=== PATIENT | female | born 1985 | race Caucasian/White ===

== ENCOUNTER 2017-02-21 08:26 | Emergency (ER) | payer MEDICAID ==
[~2017-02-21] VITALS: Ht 167.6 cm; Wt 84.5 kg
[~2017-02-21 08:26] MED LIST: BACTDS PO; CIPR500T4 PO; ONDA4TAB35 PO
[2017-02-21 08:29] VITALS: Ht 167.6 cm; Wt 84.5 kg
--- NOTE | 2017-02-21 09:41 | RADRPT ---
PROCEDURE: Obstetrical ultrasound CLINICAL INDICATION: Pelvic pain TECHNIQUE: Multiple sonographic images of the pelvis were obtained. The images were reviewed on a PACS workstation. COMPARISON: None FINDINGS: The cervix is closed with a length of 2.9 cm. There is a single viable intrauterine gestation. Cardiac activity is present with 159 beats per minute. There is a vertex presentation. The placenta is anterior. There is no evidence for an abruption or placenta previa. There is a normal amount of amniotic fluid with a maximum vertical pocket of 3.9 cm. Measurements were made in order to determine age. The results are as follows (cm): BPD =3.12 HC =11.88 AC =10.38 FL =1.97 Estimated gestational age by ultrasound of approximately 16 weeks, 0 days. The estimated date of delivery by ultrasound is 08/08/2017. Estimated gestational age by LMP of approximately 15 weeks, 3 days. The estimated date of delivery by LMP is 08/12/2017. EFW = 144 grams (83rd percentile) The right ovary measures 2.1 x 2.8 x 2.2 cm. The left ovary measures 2.8 x 1.6 x 2.0 cm. There is normal vascular flow in bilateral ovaries. No significant ovarian lesions are identified. Bilatera l adnexa are unremarkable. IMPRESSION: Single viable intrauterine gestation of approximately 16 weeks, 0 days . The estimated date of delivery is 08/08/2017 . Dating by ultrasound is within 4 days of dating by LMP. Estimated weight is in the 83rd percentile. Bilateral ovaries and adnexa are unremarkable. There is normal vascular flow in bilateral ovaries. RPTAT: EE Physician Supa Date Time Electronically viewed and signed by Physician Supa on 02/21/2017 09:41 /
[2017-02-21 09:44] LABS: ADD SCAN DIFF NO
[2017-02-21 09:49] LABS: BASOPHILS % 0.3 % (0.0-2.0); EOSINOPHILS # 0.1 10^3/ul (0.0-0.5); EOSINOPHILS % 0.7 % (0.0-7.0); HEMATOCRIT 37.8 % (37.0-47.0); LYMPHOCYTES # 1.4 10^3/ul (0.8-2.9); LYMPHOCYTES % 19.1 % (15.0-51.0); MEAN CORPUSCULAR HEMOGLOBIN 30.7 pg (29.0-33.0); MEAN CORPUSCULAR HGB CONC 34.4 g/dl (32.0-37.0); MEAN CORPUSCULAR VOLUME 89.2 fl (82.0-101.0); MEAN PLATELET VOLUME 10.9 fl (7.4-10.4); MONOCYTE # 0.4 10^3/ul (0.3-0.9); MONOCYTES % 5.9 % (0.0-11.0); NEUTROPHIL # 5.4 10^3/ul (1.6-7.5); NEUTROPHILS % 73.6 % (39.0-77.0); PLATELET COUNT 229 10^3/UL (140-415); RED BLOOD COUNT 4.24 10^6/ul (4.20-5.40); RED CELL DISTRIBUTION WIDTH 12.7 % (11.5-14.5); WHITE BLOOD COUNT 7.3 10^3/ul (4.8-10.8)
[2017-02-21 10:03] LABS: ADD UMIC NO; URINE BILIRUBIN (Dip) NEGATIVE (NEGATIVE); URINE BLOOD (Dip) NEGATIVE (NEGATIVE); URINE COLOR LT. YELLOW (YELLOW); URINE GLUCOSE (Dip) NEGATIVE (NEGATIVE); URINE KETONES (Dip) NEGATIVE (NEGATIVE); URINE LEUKOCYTE ESTERASE (Dip) NEGATIVE (NEGATIVE); URINE NITRITE (Dip) NEGATIVE (NEGATIVE); URINE TOTAL PROTEIN (Dip) NEGATIVE (NEGATIVE); URINE UROBILINOGEN (Dip) 0.2 E.U./dL (0.1-1.0)
[2017-02-21 10:04] LABS: POTASSIUM 3.7 mmol/L (3.5-5.1)
[2017-02-21 10:07] LABS: CREATININE 0.45 mg/dl (0.44-1.00)
--- NOTE | 2017-02-21 10:25 | ERD ---
ER Documentation Chief Complaint Date/Time DATE: 02/21/17 TIME: 10:24 Chief Complaint pelvic pain , painful urination x 2 weeks , 15 weeks preg HPI 32-year-old female who is with history of 3 miscarriages approximately 16 weeks comes in with lower pelvic pain, painful urination and right- sided flank pain. Patient reports that she was recently treated for a urinary tract infection by her doctor on 2 different occasions. A couple weeks ago she was given Macrobid which she took and then she just completed amoxicillin last week. She reports suprapubic pain that is sharp, also right-sided flank pain for the past 1 day. She denies any fever, chills, nausea, vomiting hematuria. She denies vaginal bleeding. ROS All systems reviewed and are negative except as per history of present illness. Medications Home Meds Active Scripts Ondansetron Hcl* (Zofran* ODT) 4 mg -ODT Tab.disper, 4 MG PO Q6 Y for NAUSEA AND /OR VOMITING, #10 TAB Prov:ABDIRAHMAN GRIGSBY PA-C 07/27/15 Ciprofloxacin Hcl* (Ciprofloxacin Hcl*) 500 Mg Tablet, 500 MG PO BID for 7 Days , TAB Prov:ABDIRAHMAN GRIGSBY PA-C 07/27/15 Sulfamethoxazole-Trimethoprim* (Bactrim* DS) 800-160 Mg Tab, 1 TAB PO BID for 5 Days, TAB Prov:MARK BROWN PA-C 07/16/15 Allergies Allergies: Coded Allergies: No Known Allergy (Unverified , 07/18/15) PMhx/Soc History of Surgery: Yes (GALLBLADDER REMOVAL, DNC ) Anesthesia Reaction: No Hx Neurological Disorder: No Hx Respiratory Disorders: No Hx Cardiac Disorders: No Hx Psychiatric Problems: No Hx Miscellaneous Medical Probl: No Hx Alcohol Use: No Hx Substance Use: No Hx Tobacco Use: No Physical Exam Vitals Vital Signs Date Time Temp Pulse Resp B/P Pulse Ox O2 Delivery O2 Flow Rate FiO2 02/21/17 08:29 97.9 82 18 131/72 98 Physical Exam General: Well-developed, well-nourished. The patient appears in no acute distress. HEENT: Head is normocephalic, atraumatic. No scleral icterus. Neck: Supple. Nontender. Lungs: Clear to auscultation. Normal air movement. Heart: Regular rate and rhythm. S1 and S2 are normal. No murmurs, gallops, or rubs. Abdomen: Soft, suprapubic tenderness nondistended. Bowel sounds are normoactive. Back: right sided lateral back pain in the midthoracic region, left side is nontender Extremities: No clubbing or cyanosis. Normal pulses. Moving extremities x 4. No weakness. Neurologic: Alert and oriented 3. No focal deficits. Skin: Normal turgor. No rash or lesions. Result Diagram: 02/21/1793502/21/17935 Results 24 hrs Laboratory Tests Test 02/21/17 09:34 02/21/17 09:36 Urine Color LT. YELLOW Urine Clarity CLEAR Urine pH 6.0 Urine Specific Isabel <=1.005 Urine Ketones NEGATIVE Urine Nitrite NEGATIVE Urine Bilirubin NEGATIVE Urine Urobilinogen 0.2 E.U./dL Urine Leukocyte Esterase NEGATIVE Urine Hemoglobin NEGATIVE Urine Glucose NEGATIVE% Urine Total Protein NEGATIVE White Blood Count 7.310^3/ul Red Blood Count 4.2410^6/ul Hemoglobin 13.0g/dl Hematocrit 37.8% Mean Corpuscular Volume 89.2fl Mean Corpuscular Hemoglobin 30.7pg Mean Corpuscular Hemoglobin Concent 34.4g/dl Red Cell Distribution Width 12.7% Platelet Count 26279^3/UL Mean Platelet Volume 10.9fl Neutrophils % 73.6% Lymphocytes % 19.1% Monocytes % 5.9% Eosinophils % 0.7% Basophils % 0.3% Nucleated Red Blood Cells % 0.0/100WBC Neutrophils # 5.410^3/ul Lymphocytes # 1.410^3/ul Monocytes # 0.410^3/ul Eosinophils # 0.110^3/ul Basophils # 0.010^3/ul Nucleated Red Blood Cells # 0.010^3/ul Sodium Level 138mmol/L Potassium Level 3.7mmol/L Chloride Level 104mmol/L Carbon Dioxide Level 24mmol/L Anion Gap 14 Blood Urea Nitrogen 6mg/dl Creatinine 0.45mg/dl Glucose Level 112mg/dl Calcium Level 9.0mg/dl Beta HCG, Quantitative 28081.0mIU/ml PROCEDURE: Retroperitoneal US. CLINICAL INDICATION: Right flank pain TECHNIQUE: Multiple sonographic images of the retroperitoneum were obtained. The images were reviewed on a PACS workstation. COMPARISON: No prior studies are available for comparison. FINDINGS: The right kidney measures 12.3 x 4.5 x 5.3 cm. The left kidney measures 11.5 x 4.3 x 5.9 cm. The renal parenchymal echotexture is normal. There is no hydronephrosis. There is no focal renal mass or calcification seen. The bladder is the bladder is grossly unremarkable. A gravid uterus is noted. The IVC and abdominal aorta are not visualized. IMPRESSION: Unremarkable retroperitoneal sonogram. No hydronephrosis bilaterally. Gravid uterus. RPTAT: EE Physician Supa Date Time Electronically viewed and signed by Physician Supa on 02/21/2017 11:05 RA/ PROCEDURE: Obstetrical ultrasound CLINICAL INDICATION: Pelvic pain TECHNIQUE: Multiple sonographic images of the pelvis were obtained. The images were reviewed on a PACS workstation. COMPARISON: None FINDINGS: The cervix is closed with a length of 2.9 cm. There is a single viable intrauterine gestation. Cardiac activity is present with 159 beats per minute. There is a vertex presentation. The placenta is anterior. There is no evidence for an abruption or placenta previa. There is a normal amount of amniotic fluid with a maximum vertical pocket of 3.9 cm. Measurements were made in order to determine age. The results are as follows (cm): BPD = 3.12 HC = 11.88 AC = 10.38 FL = 1.97 Estimated gestational age by ultrasound of approximately 16 weeks, 0 days. The estimated date of delivery by ultrasound is 08/08/2017. Estimated gestational age by LMP of approximately 15 weeks, 3 days. The estimated date of delivery by LMP is 08/12/2017. EFW = 144 grams (83rd percentile) The right ovary measures 2.1 x 2.8 x 2.2 cm. The left ovary measures 2.8 x 1.6 x 2.0 cm. There is normal vascular flow in bilateral ovaries. No significant ovarian lesions are identified. Bilateral adnexa are unremarkable. IMPRESSION: Single viable intrauterine gestation of approximately 16 weeks, 0 days . The estimated date of delivery is 08/08/2017 . Dating by ultrasound is within 4 days of dating by LMP. Estimated weight is in the 83rd percentile. Bilateral ovaries and adnexa are unremarkable. There is normal vascular flow in bilateral ovaries. RPTAT: EE Chip Leija Physician Date Time Electronically viewed and signed by Chip Leija Physician on 02/21/2017 09:41 RA/ Procedures/MDM ED course: Patient had an IV line established, blood and urine were obtained. MDM: 32-year-old female comes emergency department with right-sided back pain, patient's pain is reproducible on palpation, likely muscular skeletal. She had a pelvic ultrasound done, shows a single live intrauterine at approximately 6, no significant signs of abruption or previa. There are no adnexal masses. Urine was also negative for infection, given her history of and recent antibiotic treatment, a urine culture was sent as well. No signs of acute or surgical abdominal process including acute appendicitis, ovarian torsion, tubo-ovarian abscess. Renal ultrasound also done, there is no evidence of hydronephrosis. I have asked her to patient desire to take Tylenol at home, recheck with her primary care doctor in the next several days. Departure Diagnosis: Primary Impression: Back pain Additional Impression: Second trimester Condition: BUD Pérez PA-C February 21, 2017 10:25
--- NOTE | 2017-02-21 11:05 | RADRPT ---
PROCEDURE: Retroperitoneal US. CLINICAL INDICATION: Right flank pain TECHNIQUE: Multiple sonographic images of the retroperitoneum were obtained. The images were revi ewed on a PACS workstation. COMPARISON: No prior studies are available for comparison. FINDINGS: The right kidney measures 12.3 x 4.5 x 5.3 cm. The left kidney measures 11.5 x 4.3 x 5.9 cm. The renal parenchymal echotexture is normal. There is no hydronephrosis. There is no focal renal mass or calcification seen. The bladder is the bladder is grossly unremarkable. A gravid uterus is noted. The IVC and abdominal aorta are not visualized. IMPRESSION: Unremarkable retroperitoneal sonogram. No hydronephrosis bilaterally. Gravid uterus. RPTAT: EE Physician Supa Date Time Electronically viewed and signed by Physician Supa on 02/21/2017 11:05 /
== END 2017-02-21 11:54 | disposition home or self-care (01) ==
LOC: FTE 08:26
DX: O99.89 Other specified diseases and conditions complicating pregnancy, childbirth and the puerperium (principal); M54.6 Pain in thoracic spine; R10.2 Pelvic and perineal pain; Z3A.16 16 weeks gestation of pregnancy
CPT/HCPCS: 36415; 76775; 76805; 80048; 81003; 84702; 85025; 86900; 86901; 87086; Z7502

== ENCOUNTER 2017-08-03 19:20 | Inpatient (IN) | payer MEDICAID ==
[~2017-08-03] VITALS: Ht 167.6 cm; Wt 93.7 kg
[~2017-08-03 19:20] MED LIST changes: +OXYTOCIN 30 UNITS/LR 500 ML BAG IV ONE
[2017-08-03 20:00] VITALS: BP 128/70; PULSE 87; RESP 20
[2017-08-03] MEDS ORDERED: PREN-19 PO (20:05)
[2017-08-03] MEDS: LACTATED RINGER'S 1,000 ML IV SCH ×2 (20:27→21:56)
[2017-08-03] MEDS ORDERED: METHYLERGONOVINE 0.2 MG INJ IM PRN (20:30)
[2017-08-03] MEDS ORDERED: MISOPROSTOL 200 MCG TAB PR PRN (20:30)
[2017-08-03] MEDS ORDERED: OXYTOCIN 30 UNITS/LR 500 ML IV PRN (20:30)
[2017-08-03] MEDS ORDERED: AMPICILLIN 2 GM/NS (PMX) 100 ML IV SCH (20:30)
[2017-08-03] MEDS ORDERED: CARBOPROST 250 MCG INJ IM PRN (20:30)
[2017-08-03] MEDS ORDERED: OXYTOCIN 30 UNITS/LR 500 ML IV SCH (20:30)
[2017-08-03] MEDS ORDERED: CEFAZOLIN 2 GM/50 ML (PMX) 50 ML IV SCH (20:30)
[2017-08-03] MEDS ORDERED: morphine SULFATE/PF (10 MG/10 ML) INJ ONE (21:39)
[2017-08-03] MEDS ORDERED: FENTAnyl 50 MCG/ML VIAL ONE (21:40)
[2017-08-03] MEDS ORDERED: ONDANSETRON 4 MG INJ IV PRN (22:00)
[2017-08-03] MEDS ORDERED: DIPHENHYDRAMINE 50 MG INJ IV PRN (22:00)
[2017-08-03] MEDS ORDERED: ZOLPIDEM 5 MG TAB PO PRN (22:00)
[2017-08-03] MEDS ORDERED: NALOXONE (0.4 MG/ML) INJ IV PRN (22:00)
[2017-08-03] MEDS ORDERED: PHENYLephrine (100 MCG/ML) 5ML SYG ONE (22:49)
--- NOTE | 2017-08-03 22:49 | HP ---
Date/Time of Note Date/Time of Note DATE: 08/03/17 TIME: 22:44 OB - History Hx of Present Chief Complaint: contractions Estimated Due Date: Aug 12, 2017 : 6 Para: 2 Spontaneous : 3 Therapeutic : 0 Care: Good Care Ultrasounds: Normal mid trimester US Obstetrical Complications: None Medical Complications: None Past Family/Social History * Past Medical, Surgical, Family and Obstetric Histories reviewed from chart. GBS Status: Positive OB Admission Exam Vital Signs Vital Signs Vital Signs Date Time Temp Pulse Resp B/P Pulse Ox O2 Delivery O2 Flow Rate FiO2 08/03/17 20:00 98.3 87 20 128/70 Room Air Physical Exam HEENT: WNL Heart: Rhythm Normal Lungs: Clear, Equal Abdomen: WNL Extremities: Normal Reflexes: Normal Heart Rate: 120's Accelerations: Accelerations Present Decelerations: No Decelerations Varibility: Moderate Contractions on Admission: < 5 Minutes Apart Last 72 hours Lab Results CBC & BMP 08/03/17 20:25 OB Assessment/Plan Reason for admission: section Other Assessment: previous c/s x2 and contractions Plan: Section Other plan: ALLAN NETTLES MD Aug 03, 2017 22:49
[2017-08-03] MEDS ORDERED: DEXAMETHASONE 4 MG/ML 1 ML INJ ONE (22:51)
[2017-08-04] VITALS (7 sets, daily range): BP systolic 95–113; BP diastolic 48–66; PULSE 71–83; RESP 18–20
--- NOTE | 2017-08-04 00:08 | SIPON ---
Date/Time of Note Date/Time of Note DATE: 08/04/17 TIME: 00:06 Operative Report Preoperative Diagnosis Previous c/s x2, contractions, voluntary sterilization Postoperative Diagnosis Same Operation/Procedure Performed Repeat c/s and BTL Surgeon Allan Thorne MD licensed nursing assistant Dr Napier Anesthesia: spinal Estimated blood loss: other (500 ml) Transfusion Required none Specimen placenta, right and left Fallopian tubes Grafts/Implants none Complications none ALLAN THORNE MD Aug 04, 2017 00:08
--- NOTE | 2017-08-04 00:08 | SIPON ---
Date/Time of Note Date/Time of Note DATE: 08/04/17 TIME: 00:06 Operative Report Preoperative Diagnosis Previous c/s x2, contractions, voluntary sterilization Postoperative Diagnosis Same Operation/Procedure Performed Repeat c/s and BTL Surgeon Allan Thorne MD assistant shift supervisor Dr Napier Anesthesia: spinal Estimated blood loss: other (500 ml) Transfusion Required none Specimen placenta, right and left Fallopian tubes Grafts/Implants none Complications none ALLAN THORNE MD Aug 04, 2017 00:08
--- NOTE | 2017-08-04 00:08 | SIPON ---
Date/Time of Note Date/Time of Note DATE: 08/04/17 TIME: 00:06 Operative Report Preoperative Diagnosis Previous c/s x2, contractions, voluntary sterilization Postoperative Diagnosis Same Operation/Procedure Performed Repeat c/s and BTL Surgeon Allan Thorne MD diagnostic assistant Dr Napier Anesthesia: spinal Estimated blood loss: other (500 ml) Transfusion Required none Specimen placenta, right and left Fallopian tubes Grafts/Implants none Complications none ALLAN THORNE MD Aug 04, 2017 00:08
[2017-08-04] MEDS: KETOROLAC 30 MG INJ IV PRN ×2 (01:05→13:27)
--- NOTE | 2017-08-04 01:54 | OPR ---
DATE OF OPERATION: 08/03/2017 PREOPERATIVE DIAGNOSES: 1. at 38 weeks and 5 days with previous section x2. 2. Labor contractions, 3. Voluntary sterilization. POSTOPERATIVE DIAGNOSES: 1. at 38 weeks and 5 days with previous section x2. 2. Labor contractions, 3. Voluntary sterilization. OPERATION PERFORMED: Repeat low transverse section and bilateral tubal ligation. SURGEON: Dr. Zavala. JOB SITE SUPERINTENDENT: Dr. Napier. ANESTHESIA: Spinal. ANESTHESIOLOGIST: Dr. Mckeon DESCRIPTION OF PROCEDURE: The patient was taken to the operating room and placed on the operating t able. After successful spinal anesthesia was given, the patient was placed in supine position. The area was prepared and draped in the usual sterile fashion. Spinal anesthesia was tested and was sa tisfactory. Using a scalpel, Pfannenstiel incision was made about 2 fingerbreadths above the symphy sis pubis. The incision was carried to the fascia. The fascia was incised and extended bilaterally with Morales scissors. Two Faraz were used to separate the fascia from the muscle. The muscle was d issected down to peritoneum. The peritoneum was secured with 2 Kellys and incised with Metzenbaum s cissors. Using a scalpel, a small transverse incision was made on the lower segment of the uterus. Upon entering the uterine cavity, bandage scissors were inserted to extend the incision bilaterally , curved up. Baby was delivered from cephalic presentation. After suctioning clear of amniotic flu id, baby was handed off to the team in attendance. Apgars were 8 and 9. The placenta was delivered without difficulty. The uterus was closed with #1 Monocryl continuous locked. After assu ring hemostasis, both ovaries and tubes were inspected, all looked normal. The right fallopian tube was grasped with a True clamp. Using 0 plain suture ligature, a 5 cm segment of the right fallo pian tube was doubly ligated. Using Metzenbaum scissors, a portion of the right fallopian tube of t he ligated area was excised and sent to pathology. Same procedure was repeated on the left fallopia n tube. After assuring hemostasis, the peritoneum was closed with 2-0 Vicryl continuous. The fasci a was closed with #1 Vicryl continuous in 2 segments. The skin was closed with donavon. ESTIMATED BLOOD LOSS: 500 mL. COUNTS: All counts were correct. Dictated By: ALLAN MILLS/THERESA Conf#: [id number] DID#: [id number]
[2017-08-04] MEDS: LACTATED RINGER'S 1,000 ML IV SCH ×3 (02:04→18:29)
[2017-08-04] MEDS ORDERED: MISOPROSTOL 200 MCG TAB PR PRN (02:30)
[2017-08-04] MEDS ORDERED: OXYTOCIN 30 UNITS/LR 500 ML IV PRN (02:30)
[2017-08-04] MEDS ORDERED: CARBOPROST 250 MCG INJ IM PRN (02:30)
[2017-08-04] MEDS ORDERED: OXYCODONE/ACETAMINOPHEN (5/325) TAB PO PRN (02:30)
[2017-08-04] MEDS ORDERED: METHYLERGONOVINE 0.2 MG INJ IM PRN (02:30)
[2017-08-04] MEDS ORDERED: LANOLIN 7 GM TUBE TOP PRN (02:30)
[2017-08-04] MEDS: OXYTOCIN 30 UNITS/LR 500 ML IV SCH ×2 (02:43→06:40)
[2017-08-04] MEDS ORDERED: IBUPROFEN 800 MG TAB PO SCH (06:00)
[2017-08-04] MEDS: SENNA/DOCUSATE NA (8.6MG/50MG) TAB PO SCH ×2 (09:01→22:01)
--- NOTE | 2017-08-04 15:00 | PN ---
Date/Time of Note Date/Time of Note DATE: 08/04/17 TIME: 14:58 OB Subjective Subjective Subjective Post C section day 2 Doing Well Afebrile Ambulatory Chest Clear Breasts are soft , Nipples are intact Abdomen is soft Fundus is firm Moderate amount of lochia Incision is clean ,No evidence of infection No calf tenderness Laboratory Tests Test 08/03/17 20:25 White Blood Count 9.610^3/ul Red Blood Count 4.2110^6/ul Hemoglobin 12.5g/dl Hematocrit 36.3% Mean Corpuscular Volume 86.2fl Mean Corpuscular Hemoglobin 29.7pg Mean Corpuscular Hemoglobin Concent 34.4g/dl Red Cell Distribution Width 12.3% Platelet Count 92757^3/UL Mean Platelet Volume 11.0fl Neutrophils % 73.8% Lymphocytes % 18.3% Monocytes % 6.9% Eosinophils % 0.2% Basophils % 0.2% Nucleated Red Blood Cells % 0.0/100WBC Neutrophils # 7.110^3/ul Lymphocytes # 1.810^3/ul Monocytes # 0.710^3/ul Eosinophils # 0.010^3/ul Basophils # 0.010^3/ul Nucleated Red Blood Cells # 0.010^3/ul Prothrombin Time 12.7Sec Prothrombin Time Ratio 1.0 INR International Normalized Ratio 0.95 Activated Partial Thromboplast Time 25.8Sec Current Medications Medications (Trade) Dose Ordered Sig/Winsome Route PRN Reason Start Time Stop Time Status Last Admin Dose Admin Lactated Ringer's 1,000 ml @ 125 mls/hr Q8H IV 08/03/17 20:02 08/04/17 02:07 DC 08/03/17 21:56 Ampicillin 100 ml @ 100 mls/hr ONCE IV 08/03/17 20:30 08/04/17 02:07 DC 08/03/17 20:28 Cefazolin Sodium/ Dextrose 50 ml @ 100 mls/hr ONCE IV 08/03/17 20:30 08/04/17 02:07 DC Oxytocin/Lactated Ringer's 500 ml @ 125 mls/hr ONCE IV 08/03/17 20:30 08/04/17 02:07 DC Oxytocin/Lactated Ringer's 500 ml @ 0 mls/hr ONCE PRN IV For Hemorrhage Management 08/03/17 20:30 08/04/17 02:07 DC Methylergonovine Maleate (Methergine) 0.2 mg ONCE PRN IM VAGINAL BLEEDING 08/03/17 20:30 08/04/17 02:07 DC Carboprost Tromethamine (Hemabate) 250 mcg ONCE PRN IM VAGINAL BLEEDING 08/03/17 20:30 08/04/17 02:07 DC Misoprostol (Cytotec) 1,000 mcg ONCE PRN DE VAGINAL BLEEDING 08/03/17 20:30 08/04/17 02:07 DC Morphine Sulfate (Duramorph) 10 mg STK-MED ONCE .ROUTE 08/03/17 21:39 08/03/17 21:40 DC Fentanyl (Sublimaze) 100 mcg STK-MED ONCE .ROUTE 08/03/17 21:40 08/03/17 21:41 DC Naloxone HCl (Narcan) 0.1 mg Q2M PRN IV FOR RESP RATE 8 OR LESS 08/03/17 22:00 08/04/17 21:59 Ketorolac Tromethamine (Toradol) 30 mg Q6H PRN IV PAIN 08/03/17 22:00 08/04/17 21:59 08/04/17 13:27 Diphenhydramine HCl (Benadryl) 25 mg Q6H PRN IV ITCHING 08/03/17 22:00 08/04/17 21:59 Ondansetron HCl (Zofran Inj) 4 mg Q6H PRN IV NAUSEA AND/OR VOMITING 08/03/17 22:00 08/04/17 21:59 Zolpidem Tartrate (Ambien) 5 mg HS MAY REPEAT X 1 PRN PO INSOMNIA 08/03/17 22:00 08/04/17 21:59 Miscellaneous Information (* Miscellaneous Pharmacy Order) Duramorph: .2 mg Spi... GIVEN ONCE XX 08/03/17 22:00 08/03/17 22:04 DC Phenylephrine HCl (Adin-Synephrine Inj Syg) 500 mcg STK-MED ONCE .ROUTE 08/03/17 22:49 08/03/17 22:50 DC Dexamethasone 4 mg 4 mg STK-MED ONCE .ROUTE 08/03/17 22:51 08/03/17 22:52 DC Lactated Ringer's 1,000 ml @ 125 mls/hr Q8H IV 08/04/17 02:04 08/04/17 10:49 Oxytocin/Lactated Ringer's 500 ml @ 125 mls/hr Q4H IV 08/04/17 02:04 08/04/17 10:03 DC 08/04/17 06:40 Oxycodone/ Acetaminophen (Percocet (5/ 325)) 1 tab Q4H PRN PO PAIN LEVEL 4-6 08/04/17 02:30 Oxycodone/ Acetaminophen (Percocet (5/ 325)) 2 tab Q4H PRN PO PAIN LEVEL 7-10 08/04/17 02:30 Ibuprofen (Motrin) 800 mg Q8 PO 08/04/17 06:00 UNV Simethicone (Mylicon) 160 mg Q8H PRN PO DISTENSION/GAS/BLOATING 08/04/17 02:30 Senna/Docusate Sodium (Senokot-S) 1 tab BID PO 08/04/17 09:00 08/04/17 09:01 Lanolin (Rwg-I-Fzwypa) 1 applic BEDSIDE MEDICATION PRN TOP BEDSIDE FOR LATA TO NIPPLES 08/04/17 02:30 08/04/17 13:27 Diphtheria/ Tetanus/Acell Pertussis 0.5 ml 0.5 ml ONCE ONCE IM* 08/07/17 09:00 08/07/17 09:01 Oxytocin/Lactated Ringer's 500 ml @ 0 mls/hr ONCE PRN IV For Hemorrhage Management 08/04/17 02:30 Methylergonovine Maleate (Methergine) 0.2 mg ONCE PRN IM VAGINAL BLEEDING 08/04/17 02:30 Carboprost Tromethamine (Hemabate) 250 mcg ONCE PRN IM VAGINAL BLEEDING 08/04/17 02:30 Misoprostol (Cytotec) 1,000 mcg ONCE PRN DE VAGINAL BLEEDING 08/04/17 02:30 Ibuprofen (Motrin) 800 mg Q8 PO 08/04/17 23:00 No ankle edema New born is doing well, Breast feeding JAN PEREIRA MD Aug 04, 2017 15:00
--- NOTE | 2017-08-04 15:00 | PN ---
Date/Time of Note Date/Time of Note DATE: 08/04/17 TIME: 14:58 OB Subjective Subjective Subjective Post C section day 2 Doing Well Afebrile Ambulatory Chest Clear Breasts are soft , Nipples are intact Abdomen is soft Fundus is firm Moderate amount of lochia Incision is clean ,No evidence of infection No calf tenderness Laboratory Tests Test 08/03/17 20:25 White Blood Count 9.610^3/ul Red Blood Count 4.2110^6/ul Hemoglobin 12.5g/dl Hematocrit 36.3% Mean Corpuscular Volume 86.2fl Mean Corpuscular Hemoglobin 29.7pg Mean Corpuscular Hemoglobin Concent 34.4g/dl Red Cell Distribution Width 12.3% Platelet Count 72341^3/UL Mean Platelet Volume 11.0fl Neutrophils % 73.8% Lymphocytes % 18.3% Monocytes % 6.9% Eosinophils % 0.2% Basophils % 0.2% Nucleated Red Blood Cells % 0.0/100WBC Neutrophils # 7.110^3/ul Lymphocytes # 1.810^3/ul Monocytes # 0.710^3/ul Eosinophils # 0.010^3/ul Basophils # 0.010^3/ul Nucleated Red Blood Cells # 0.010^3/ul Prothrombin Time 12.7Sec Prothrombin Time Ratio 1.0 INR International Normalized Ratio 0.95 Activated Partial Thromboplast Time 25.8Sec Current Medications Medications (Trade) Dose Ordered Sig/Winsome Route PRN Reason Start Time Stop Time Status Last Admin Dose Admin Lactated Ringer's 1,000 ml @ 125 mls/hr Q8H IV 08/03/17 20:02 08/04/17 02:07 DC 08/03/17 21:56 Ampicillin 100 ml @ 100 mls/hr ONCE IV 08/03/17 20:30 08/04/17 02:07 DC 08/03/17 20:28 Cefazolin Sodium/ Dextrose 50 ml @ 100 mls/hr ONCE IV 08/03/17 20:30 08/04/17 02:07 DC Oxytocin/Lactated Ringer's 500 ml @ 125 mls/hr ONCE IV 08/03/17 20:30 08/04/17 02:07 DC Oxytocin/Lactated Ringer's 500 ml @ 0 mls/hr ONCE PRN IV For Hemorrhage Management 08/03/17 20:30 08/04/17 02:07 DC Methylergonovine Maleate (Methergine) 0.2 mg ONCE PRN IM VAGINAL BLEEDING 08/03/17 20:30 08/04/17 02:07 DC Carboprost Tromethamine (Hemabate) 250 mcg ONCE PRN IM VAGINAL BLEEDING 08/03/17 20:30 08/04/17 02:07 DC Misoprostol (Cytotec) 1,000 mcg ONCE PRN NV VAGINAL BLEEDING 08/03/17 20:30 08/04/17 02:07 DC Morphine Sulfate (Duramorph) 10 mg STK-MED ONCE .ROUTE 08/03/17 21:39 08/03/17 21:40 DC Fentanyl (Sublimaze) 100 mcg STK-MED ONCE .ROUTE 08/03/17 21:40 08/03/17 21:41 DC Naloxone HCl (Narcan) 0.1 mg Q2M PRN IV FOR RESP RATE 8 OR LESS 08/03/17 22:00 08/04/17 21:59 Ketorolac Tromethamine (Toradol) 30 mg Q6H PRN IV PAIN 08/03/17 22:00 08/04/17 21:59 08/04/17 13:27 Diphenhydramine HCl (Benadryl) 25 mg Q6H PRN IV ITCHING 08/03/17 22:00 08/04/17 21:59 Ondansetron HCl (Zofran Inj) 4 mg Q6H PRN IV NAUSEA AND/OR VOMITING 08/03/17 22:00 08/04/17 21:59 Zolpidem Tartrate (Ambien) 5 mg HS MAY REPEAT X 1 PRN PO INSOMNIA 08/03/17 22:00 08/04/17 21:59 Miscellaneous Information (* Miscellaneous Pharmacy Order) Duramorph: .2 mg Spi... GIVEN ONCE XX 08/03/17 22:00 08/03/17 22:04 DC Phenylephrine HCl (Adin-Synephrine Inj Syg) 500 mcg STK-MED ONCE .ROUTE 08/03/17 22:49 08/03/17 22:50 DC Dexamethasone 4 mg 4 mg STK-MED ONCE .ROUTE 08/03/17 22:51 08/03/17 22:52 DC Lactated Ringer's 1,000 ml @ 125 mls/hr Q8H IV 08/04/17 02:04 08/04/17 10:49 Oxytocin/Lactated Ringer's 500 ml @ 125 mls/hr Q4H IV 08/04/17 02:04 08/04/17 10:03 DC 08/04/17 06:40 Oxycodone/ Acetaminophen (Percocet (5/ 325)) 1 tab Q4H PRN PO PAIN LEVEL 4-6 08/04/17 02:30 Oxycodone/ Acetaminophen (Percocet (5/ 325)) 2 tab Q4H PRN PO PAIN LEVEL 7-10 08/04/17 02:30 Ibuprofen (Motrin) 800 mg Q8 PO 08/04/17 06:00 UNV Simethicone (Mylicon) 160 mg Q8H PRN PO DISTENSION/GAS/BLOATING 08/04/17 02:30 Senna/Docusate Sodium (Senokot-S) 1 tab BID PO 08/04/17 09:00 08/04/17 09:01 Lanolin (Ttz-[id number]) 1 applic BEDSIDE MEDICATION PRN TOP BEDSIDE FOR LATA TO NIPPLES 08/04/17 02:30 08/04/17 13:27 Diphtheria/ Tetanus/Acell Pertussis 0.5 ml 0.5 ml ONCE ONCE IM* 08/07/17 09:00 08/07/17 09:01 Oxytocin/Lactated Ringer's 500 ml @ 0 mls/hr ONCE PRN IV For Hemorrhage Management 08/04/17 02:30 Methylergonovine Maleate (Methergine) 0.2 mg ONCE PRN IM VAGINAL BLEEDING 08/04/17 02:30 Carboprost Tromethamine (Hemabate) 250 mcg ONCE PRN IM VAGINAL BLEEDING 08/04/17 02:30 Misoprostol (Cytotec) 1,000 mcg ONCE PRN [place] VAGINAL BLEEDING 08/04/17 02:30 Ibuprofen (Motrin) 800 mg Q8 PO 08/04/17 23:00 No ankle edema New born is doing well, Breast feeding JAN PEREIRA MD Aug 04, 2017 15:00
--- NOTE | 2017-08-04 15:00 | PN ---
Date/Time of Note Date/Time of Note DATE: 08/04/17 TIME: 14:58 OB Subjective Subjective Subjective Post C section day 2 Doing Well Afebrile Ambulatory Chest Clear Breasts are soft , Nipples are intact Abdomen is soft Fundus is firm Moderate amount of lochia Incision is clean ,No evidence of infection No calf tenderness Laboratory Tests Test 08/03/17 20:25 White Blood Count 9.610^3/ul Red Blood Count 4.2110^6/ul Hemoglobin 12.5g/dl Hematocrit 36.3% Mean Corpuscular Volume 86.2fl Mean Corpuscular Hemoglobin 29.7pg Mean Corpuscular Hemoglobin Concent 34.4g/dl Red Cell Distribution Width 12.3% Platelet Count 83834^3/UL Mean Platelet Volume 11.0fl Neutrophils % 73.8% Lymphocytes % 18.3% Monocytes % 6.9% Eosinophils % 0.2% Basophils % 0.2% Nucleated Red Blood Cells % 0.0/100WBC Neutrophils # 7.110^3/ul Lymphocytes # 1.810^3/ul Monocytes # 0.710^3/ul Eosinophils # 0.010^3/ul Basophils # 0.010^3/ul Nucleated Red Blood Cells # 0.010^3/ul Prothrombin Time 12.7Sec Prothrombin Time Ratio 1.0 INR International Normalized Ratio 0.95 Activated Partial Thromboplast Time 25.8Sec Current Medications Medications (Trade) Dose Ordered Sig/Winsome Route PRN Reason Start Time Stop Time Status Last Admin Dose Admin Lactated Ringer's 1,000 ml @ 125 mls/hr Q8H IV 08/03/17 20:02 08/04/17 02:07 DC 08/03/17 21:56 Ampicillin 100 ml @ 100 mls/hr ONCE IV 08/03/17 20:30 08/04/17 02:07 DC 08/03/17 20:28 Cefazolin Sodium/ Dextrose 50 ml @ 100 mls/hr ONCE IV 08/03/17 20:30 08/04/17 02:07 DC Oxytocin/Lactated Ringer's 500 ml @ 125 mls/hr ONCE IV 08/03/17 20:30 08/04/17 02:07 DC Oxytocin/Lactated Ringer's 500 ml @ 0 mls/hr ONCE PRN IV For Hemorrhage Management 08/03/17 20:30 08/04/17 02:07 DC Methylergonovine Maleate (Methergine) 0.2 mg ONCE PRN IM VAGINAL BLEEDING 08/03/17 20:30 08/04/17 02:07 DC Carboprost Tromethamine (Hemabate) 250 mcg ONCE PRN IM VAGINAL BLEEDING 08/03/17 20:30 08/04/17 02:07 DC Misoprostol (Cytotec) 1,000 mcg ONCE PRN [place] VAGINAL BLEEDING 08/03/17 20:30 08/04/17 02:07 DC Morphine Sulfate (Duramorph) 10 mg STK-MED ONCE .ROUTE 08/03/17 21:39 08/03/17 21:40 DC Fentanyl (Sublimaze) 100 mcg STK-MED ONCE .ROUTE 08/03/17 21:40 08/03/17 21:41 DC Naloxone HCl (Narcan) 0.1 mg Q2M PRN IV FOR RESP RATE 8 OR LESS 08/03/17 22:00 08/04/17 21:59 Ketorolac Tromethamine (Toradol) 30 mg Q6H PRN IV PAIN 08/03/17 22:00 08/04/17 21:59 08/04/17 13:27 Diphenhydramine HCl (Benadryl) 25 mg Q6H PRN IV ITCHING 08/03/17 22:00 08/04/17 21:59 Ondansetron HCl (Zofran Inj) 4 mg Q6H PRN IV NAUSEA AND/OR VOMITING 08/03/17 22:00 08/04/17 21:59 Zolpidem Tartrate (Ambien) 5 mg HS MAY REPEAT X 1 PRN PO INSOMNIA 08/03/17 22:00 08/04/17 21:59 Miscellaneous Information (* Miscellaneous Pharmacy Order) Duramorph: .2 mg Spi... GIVEN ONCE XX 08/03/17 22:00 08/03/17 22:04 DC Phenylephrine HCl (Adin-Synephrine Inj Syg) 500 mcg STK-MED ONCE .ROUTE 08/03/17 22:49 08/03/17 22:50 DC Dexamethasone 4 mg 4 mg STK-MED ONCE .ROUTE 08/03/17 22:51 08/03/17 22:52 DC Lactated Ringer's 1,000 ml @ 125 mls/hr Q8H IV 08/04/17 02:04 08/04/17 10:49 Oxytocin/Lactated Ringer's 500 ml @ 125 mls/hr Q4H IV 08/04/17 02:04 08/04/17 10:03 DC 08/04/17 06:40 Oxycodone/ Acetaminophen (Percocet (5/ 325)) 1 tab Q4H PRN PO PAIN LEVEL 4-6 08/04/17 02:30 Oxycodone/ Acetaminophen (Percocet (5/ 325)) 2 tab Q4H PRN PO PAIN LEVEL 7-10 08/04/17 02:30 Ibuprofen (Motrin) 800 mg Q8 PO 08/04/17 06:00 UNV Simethicone (Mylicon) 160 mg Q8H PRN PO DISTENSION/GAS/BLOATING 08/04/17 02:30 Senna/Docusate Sodium (Senokot-S) 1 tab BID PO 08/04/17 09:00 08/04/17 09:01 Lanolin (Tlh-[id number]) 1 applic BEDSIDE MEDICATION PRN TOP BEDSIDE FOR LATA TO NIPPLES 08/04/17 02:30 08/04/17 13:27 Diphtheria/ Tetanus/Acell Pertussis 0.5 ml 0.5 ml ONCE ONCE IM* 08/07/17 09:00 08/07/17 09:01 Oxytocin/Lactated Ringer's 500 ml @ 0 mls/hr ONCE PRN IV For Hemorrhage Management 08/04/17 02:30 Methylergonovine Maleate (Methergine) 0.2 mg ONCE PRN IM VAGINAL BLEEDING 08/04/17 02:30 Carboprost Tromethamine (Hemabate) 250 mcg ONCE PRN IM VAGINAL BLEEDING 08/04/17 02:30 Misoprostol (Cytotec) 1,000 mcg ONCE PRN [place] VAGINAL BLEEDING 08/04/17 02:30 Ibuprofen (Motrin) 800 mg Q8 PO 08/04/17 23:00 No ankle edema New born is doing well, Breast feeding JAN PEREIRA MD Aug 04, 2017 15:00
--- NOTE | 2017-08-04 15:03 | PN ---
Date/Time of Note Date/Time of Note DATE: 08/04/17 TIME: 15:02 OB Subjective Subjective Subjective July, Post C section day 1 Doing Well Afebrile Ambulatory Chest Clear Breasts are soft , Nipples are intact Abdomen is soft Fundus is firm Moderate amount of lochia Incision is clean ,No evidence of infection No calf tenderness Laboratory Tests Test 08/03/17 20:25 White Blood Count 9.610^3/ul Red Blood Count 4.2110^6/ul Hemoglobin 12.5g/dl Hematocrit 36.3% Mean Corpuscular Volume 86.2fl Mean Corpuscular Hemoglobin 29.7pg Mean Corpuscular Hemoglobin Concent 34.4g/dl Red Cell Distribution Width 12.3% Platelet Count 38090^3/UL Mean Platelet Volume 11.0fl Neutrophils % 73.8% Lymphocytes % 18.3% Monocytes % 6.9% Eosinophils % 0.2% Basophils % 0.2% Nucleated Red Blood Cells % 0.0/100WBC Neutrophils # 7.110^3/ul Lymphocytes # 1.810^3/ul Monocytes # 0.710^3/ul Eosinophils # 0.010^3/ul Basophils # 0.010^3/ul Nucleated Red Blood Cells # 0.010^3/ul Prothrombin Time 12.7Sec Prothrombin Time Ratio 1.0 INR International Normalized Ratio 0.95 Activated Partial Thromboplast Time 25.8Sec Current Medications Medications (Trade) Dose Ordered Sig/Winsome Route PRN Reason Start Time Stop Time Status Last Admin Dose Admin Lactated Ringer's 1,000 ml @ 125 mls/hr Q8H IV 08/03/17 20:02 08/04/17 02:07 DC 08/03/17 21:56 Ampicillin 100 ml @ 100 mls/hr ONCE IV 08/03/17 20:30 08/04/17 02:07 DC 08/03/17 20:28 Cefazolin Sodium/ Dextrose 50 ml @ 100 mls/hr ONCE IV 08/03/17 20:30 08/04/17 02:07 DC Oxytocin/Lactated Ringer's 500 ml @ 125 mls/hr ONCE IV 08/03/17 20:30 08/04/17 02:07 DC Oxytocin/Lactated Ringer's 500 ml @ 0 mls/hr ONCE PRN IV For Hemorrhage Management 08/03/17 20:30 08/04/17 02:07 DC Methylergonovine Maleate (Methergine) 0.2 mg ONCE PRN IM VAGINAL BLEEDING 08/03/17 20:30 08/04/17 02:07 DC Carboprost Tromethamine (Hemabate) 250 mcg ONCE PRN IM VAGINAL BLEEDING 08/03/17 20:30 08/04/17 02:07 DC Misoprostol (Cytotec) 1,000 mcg ONCE PRN [place] VAGINAL BLEEDING 08/03/17 20:30 08/04/17 02:07 DC Morphine Sulfate (Duramorph) 10 mg STK-MED ONCE .ROUTE 08/03/17 21:39 08/03/17 21:40 DC Fentanyl (Sublimaze) 100 mcg STK-MED ONCE .ROUTE 08/03/17 21:40 08/03/17 21:41 DC Naloxone HCl (Narcan) 0.1 mg Q2M PRN IV FOR RESP RATE 8 OR LESS 08/03/17 22:00 08/04/17 21:59 Ketorolac Tromethamine (Toradol) 30 mg Q6H PRN IV PAIN 08/03/17 22:00 08/04/17 21:59 08/04/17 13:27 Diphenhydramine HCl (Benadryl) 25 mg Q6H PRN IV ITCHING 08/03/17 22:00 08/04/17 21:59 Ondansetron HCl (Zofran Inj) 4 mg Q6H PRN IV NAUSEA AND/OR VOMITING 08/03/17 22:00 08/04/17 21:59 Zolpidem Tartrate (Ambien) 5 mg HS MAY REPEAT X 1 PRN PO INSOMNIA 08/03/17 22:00 08/04/17 21:59 Miscellaneous Information (* Miscellaneous Pharmacy Order) Duramorph: .2 mg Spi... GIVEN ONCE XX 08/03/17 22:00 08/03/17 22:04 DC Phenylephrine HCl (Adin-Synephrine Inj Syg) 500 mcg STK-MED ONCE .ROUTE 08/03/17 22:49 08/03/17 22:50 DC Dexamethasone 4 mg 4 mg STK-MED ONCE .ROUTE 08/03/17 22:51 08/03/17 22:52 DC Lactated Ringer's 1,000 ml @ 125 mls/hr Q8H IV 08/04/17 02:04 08/04/17 10:49 Oxytocin/Lactated Ringer's 500 ml @ 125 mls/hr Q4H IV 08/04/17 02:04 08/04/17 10:03 DC 08/04/17 06:40 Oxycodone/ Acetaminophen (Percocet (5/ 325)) 1 tab Q4H PRN PO PAIN LEVEL 4-6 08/04/17 02:30 Oxycodone/ Acetaminophen (Percocet (5/ 325)) 2 tab Q4H PRN PO PAIN LEVEL 7-10 08/04/17 02:30 Ibuprofen (Motrin) 800 mg Q8 PO 08/04/17 06:00 UNV Simethicone (Mylicon) 160 mg Q8H PRN PO DISTENSION/GAS/BLOATING 08/04/17 02:30 Senna/Docusate Sodium (Senokot-S) 1 tab BID PO 08/04/17 09:00 08/04/17 09:01 Lanolin (Lku-D-[id number]) 1 applic BEDSIDE MEDICATION PRN TOP BEDSIDE FOR LATA TO NIPPLES 08/04/17 02:30 08/04/17 13:27 Diphtheria/ Tetanus/Acell Pertussis 0.5 ml 0.5 ml ONCE ONCE IM* 08/07/17 09:00 08/07/17 09:01 Oxytocin/Lactated Ringer's 500 ml @ 0 mls/hr ONCE PRN IV For Hemorrhage Management 08/04/17 02:30 Methylergonovine Maleate (Methergine) 0.2 mg ONCE PRN IM VAGINAL BLEEDING 08/04/17 02:30 Carboprost Tromethamine (Hemabate) 250 mcg ONCE PRN IM VAGINAL BLEEDING 08/04/17 02:30 Misoprostol (Cytotec) 1,000 mcg ONCE PRN [place] VAGINAL BLEEDING 08/04/17 02:30 Ibuprofen (Motrin) 800 mg Q8 PO 08/04/17 23:00 No ankle edema New born is doing well, Breast feeding JAN PEREIRA MD Aug 04, 2017 15:03
--- NOTE | 2017-08-04 15:03 | PN ---
Date/Time of Note Date/Time of Note DATE: 08/04/17 TIME: 15:02 OB Subjective Subjective Subjective July, Post C section day 1 Doing Well Afebrile Ambulatory Chest Clear Breasts are soft , Nipples are intact Abdomen is soft Fundus is firm Moderate amount of lochia Incision is clean ,No evidence of infection No calf tenderness Laboratory Tests Test 08/03/17 20:25 White Blood Count 9.610^3/ul Red Blood Count 4.2110^6/ul Hemoglobin 12.5g/dl Hematocrit 36.3% Mean Corpuscular Volume 86.2fl Mean Corpuscular Hemoglobin 29.7pg Mean Corpuscular Hemoglobin Concent 34.4g/dl Red Cell Distribution Width 12.3% Platelet Count 31165^3/UL Mean Platelet Volume 11.0fl Neutrophils % 73.8% Lymphocytes % 18.3% Monocytes % 6.9% Eosinophils % 0.2% Basophils % 0.2% Nucleated Red Blood Cells % 0.0/100WBC Neutrophils # 7.110^3/ul Lymphocytes # 1.810^3/ul Monocytes # 0.710^3/ul Eosinophils # 0.010^3/ul Basophils # 0.010^3/ul Nucleated Red Blood Cells # 0.010^3/ul Prothrombin Time 12.7Sec Prothrombin Time Ratio 1.0 INR International Normalized Ratio 0.95 Activated Partial Thromboplast Time 25.8Sec Current Medications Medications (Trade) Dose Ordered Sig/Winsome Route PRN Reason Start Time Stop Time Status Last Admin Dose Admin Lactated Ringer's 1,000 ml @ 125 mls/hr Q8H IV 08/03/17 20:02 08/04/17 02:07 DC 08/03/17 21:56 Ampicillin 100 ml @ 100 mls/hr ONCE IV 08/03/17 20:30 08/04/17 02:07 DC 08/03/17 20:28 Cefazolin Sodium/ Dextrose 50 ml @ 100 mls/hr ONCE IV 08/03/17 20:30 08/04/17 02:07 DC Oxytocin/Lactated Ringer's 500 ml @ 125 mls/hr ONCE IV 08/03/17 20:30 08/04/17 02:07 DC Oxytocin/Lactated Ringer's 500 ml @ 0 mls/hr ONCE PRN IV For Hemorrhage Management 08/03/17 20:30 08/04/17 02:07 DC Methylergonovine Maleate (Methergine) 0.2 mg ONCE PRN IM VAGINAL BLEEDING 08/03/17 20:30 08/04/17 02:07 DC Carboprost Tromethamine (Hemabate) 250 mcg ONCE PRN IM VAGINAL BLEEDING 08/03/17 20:30 08/04/17 02:07 DC Misoprostol (Cytotec) 1,000 mcg ONCE PRN [place] VAGINAL BLEEDING 08/03/17 20:30 08/04/17 02:07 DC Morphine Sulfate (Duramorph) 10 mg STK-MED ONCE .ROUTE 08/03/17 21:39 08/03/17 21:40 DC Fentanyl (Sublimaze) 100 mcg STK-MED ONCE .ROUTE 08/03/17 21:40 08/03/17 21:41 DC Naloxone HCl (Narcan) 0.1 mg Q2M PRN IV FOR RESP RATE 8 OR LESS 08/03/17 22:00 08/04/17 21:59 Ketorolac Tromethamine (Toradol) 30 mg Q6H PRN IV PAIN 08/03/17 22:00 08/04/17 21:59 08/04/17 13:27 Diphenhydramine HCl (Benadryl) 25 mg Q6H PRN IV ITCHING 08/03/17 22:00 08/04/17 21:59 Ondansetron HCl (Zofran Inj) 4 mg Q6H PRN IV NAUSEA AND/OR VOMITING 08/03/17 22:00 08/04/17 21:59 Zolpidem Tartrate (Ambien) 5 mg HS MAY REPEAT X 1 PRN PO INSOMNIA 08/03/17 22:00 08/04/17 21:59 Miscellaneous Information (* Miscellaneous Pharmacy Order) Duramorph: .2 mg Spi... GIVEN ONCE XX 08/03/17 22:00 08/03/17 22:04 DC Phenylephrine HCl (Adin-Synephrine Inj Syg) 500 mcg STK-MED ONCE .ROUTE 08/03/17 22:49 08/03/17 22:50 DC Dexamethasone 4 mg 4 mg STK-MED ONCE .ROUTE 08/03/17 22:51 08/03/17 22:52 DC Lactated Ringer's 1,000 ml @ 125 mls/hr Q8H IV 08/04/17 02:04 08/04/17 10:49 Oxytocin/Lactated Ringer's 500 ml @ 125 mls/hr Q4H IV 08/04/17 02:04 08/04/17 10:03 DC 08/04/17 06:40 Oxycodone/ Acetaminophen (Percocet (5/ 325)) 1 tab Q4H PRN PO PAIN LEVEL 4-6 08/04/17 02:30 Oxycodone/ Acetaminophen (Percocet (5/ 325)) 2 tab Q4H PRN PO PAIN LEVEL 7-10 08/04/17 02:30 Ibuprofen (Motrin) 800 mg Q8 PO 08/04/17 06:00 UNV Simethicone (Mylicon) 160 mg Q8H PRN PO DISTENSION/GAS/BLOATING 08/04/17 02:30 Senna/Docusate Sodium (Senokot-S) 1 tab BID PO 08/04/17 09:00 08/04/17 09:01 Lanolin (Usg-I-Dnjwhz) 1 applic BEDSIDE MEDICATION PRN TOP BEDSIDE FOR LATA TO NIPPLES 08/04/17 02:30 08/04/17 13:27 Diphtheria/ Tetanus/Acell Pertussis 0.5 ml 0.5 ml ONCE ONCE IM* 08/07/17 09:00 08/07/17 09:01 Oxytocin/Lactated Ringer's 500 ml @ 0 mls/hr ONCE PRN IV For Hemorrhage Management 08/04/17 02:30 Methylergonovine Maleate (Methergine) 0.2 mg ONCE PRN IM VAGINAL BLEEDING 08/04/17 02:30 Carboprost Tromethamine (Hemabate) 250 mcg ONCE PRN IM VAGINAL BLEEDING 08/04/17 02:30 Misoprostol (Cytotec) 1,000 mcg ONCE PRN [place] VAGINAL BLEEDING 08/04/17 02:30 Ibuprofen (Motrin) 800 mg Q8 PO 08/04/17 23:00 No ankle edema New born is doing well, Breast feeding JAN PEREIRA MD Aug 04, 2017 15:03
--- NOTE | 2017-08-04 15:03 | PN ---
Date/Time of Note Date/Time of Note DATE: 08/04/17 TIME: 15:02 OB Subjective Subjective Subjective July, Post C section day 1 Doing Well Afebrile Ambulatory Chest Clear Breasts are soft , Nipples are intact Abdomen is soft Fundus is firm Moderate amount of lochia Incision is clean ,No evidence of infection No calf tenderness Laboratory Tests Test 08/03/17 20:25 White Blood Count 9.610^3/ul Red Blood Count 4.2110^6/ul Hemoglobin 12.5g/dl Hematocrit 36.3% Mean Corpuscular Volume 86.2fl Mean Corpuscular Hemoglobin 29.7pg Mean Corpuscular Hemoglobin Concent 34.4g/dl Red Cell Distribution Width 12.3% Platelet Count 36121^3/UL Mean Platelet Volume 11.0fl Neutrophils % 73.8% Lymphocytes % 18.3% Monocytes % 6.9% Eosinophils % 0.2% Basophils % 0.2% Nucleated Red Blood Cells % 0.0/100WBC Neutrophils # 7.110^3/ul Lymphocytes # 1.810^3/ul Monocytes # 0.710^3/ul Eosinophils # 0.010^3/ul Basophils # 0.010^3/ul Nucleated Red Blood Cells # 0.010^3/ul Prothrombin Time 12.7Sec Prothrombin Time Ratio 1.0 INR International Normalized Ratio 0.95 Activated Partial Thromboplast Time 25.8Sec Current Medications Medications (Trade) Dose Ordered Sig/Winsome Route PRN Reason Start Time Stop Time Status Last Admin Dose Admin Lactated Ringer's 1,000 ml @ 125 mls/hr Q8H IV 08/03/17 20:02 08/04/17 02:07 DC 08/03/17 21:56 Ampicillin 100 ml @ 100 mls/hr ONCE IV 08/03/17 20:30 08/04/17 02:07 DC 08/03/17 20:28 Cefazolin Sodium/ Dextrose 50 ml @ 100 mls/hr ONCE IV 08/03/17 20:30 08/04/17 02:07 DC Oxytocin/Lactated Ringer's 500 ml @ 125 mls/hr ONCE IV 08/03/17 20:30 08/04/17 02:07 DC Oxytocin/Lactated Ringer's 500 ml @ 0 mls/hr ONCE PRN IV For Hemorrhage Management 08/03/17 20:30 08/04/17 02:07 DC Methylergonovine Maleate (Methergine) 0.2 mg ONCE PRN IM VAGINAL BLEEDING 08/03/17 20:30 08/04/17 02:07 DC Carboprost Tromethamine (Hemabate) 250 mcg ONCE PRN [place] VAGINAL BLEEDING 08/03/17 20:30 08/04/17 02:07 DC Misoprostol (Cytotec) 1,000 mcg ONCE PRN [place] VAGINAL BLEEDING 08/03/17 20:30 08/04/17 02:07 DC Morphine Sulfate (Duramorph) 10 mg STK-MED ONCE .ROUTE 08/03/17 21:39 08/03/17 21:40 DC Fentanyl (Sublimaze) 100 mcg STK-MED ONCE .ROUTE 08/03/17 21:40 08/03/17 21:41 DC Naloxone HCl (Narcan) 0.1 mg Q2M PRN IV FOR RESP RATE 8 OR LESS 08/03/17 22:00 08/04/17 21:59 Ketorolac Tromethamine (Toradol) 30 mg Q6H PRN IV PAIN 08/03/17 22:00 08/04/17 21:59 08/04/17 13:27 Diphenhydramine HCl (Benadryl) 25 mg Q6H PRN IV ITCHING 08/03/17 22:00 08/04/17 21:59 Ondansetron HCl (Zofran Inj) 4 mg Q6H PRN IV NAUSEA AND/OR VOMITING 08/03/17 22:00 08/04/17 21:59 Zolpidem Tartrate (Ambien) 5 mg HS MAY REPEAT X 1 PRN PO INSOMNIA 08/03/17 22:00 08/04/17 21:59 Miscellaneous Information (* Miscellaneous Pharmacy Order) Duramorph: .2 mg Spi... GIVEN ONCE XX 08/03/17 22:00 08/03/17 22:04 DC Phenylephrine HCl (Adin-Synephrine Inj Syg) 500 mcg STK-MED ONCE .ROUTE 08/03/17 22:49 08/03/17 22:50 DC Dexamethasone 4 mg 4 mg STK-MED ONCE .ROUTE 08/03/17 22:51 08/03/17 22:52 DC Lactated Ringer's 1,000 ml @ 125 mls/hr Q8H IV 08/04/17 02:04 08/04/17 10:49 Oxytocin/Lactated Ringer's 500 ml @ 125 mls/hr Q4H IV 08/04/17 02:04 08/04/17 10:03 DC 08/04/17 06:40 Oxycodone/ Acetaminophen (Percocet (5/ 325)) 1 tab Q4H PRN PO PAIN LEVEL 4-6 08/04/17 02:30 Oxycodone/ Acetaminophen (Percocet (5/ 325)) 2 tab Q4H PRN PO PAIN LEVEL 7-10 08/04/17 02:30 Ibuprofen (Motrin) 800 mg Q8 PO 08/04/17 06:00 UNV Simethicone (Mylicon) 160 mg Q8H PRN PO DISTENSION/GAS/BLOATING 08/04/17 02:30 Senna/Docusate Sodium (Senokot-S) 1 tab BID PO 08/04/17 09:00 08/04/17 09:01 Lanolin (Jow-F-Jwjfqs) 1 applic BEDSIDE MEDICATION PRN TOP BEDSIDE FOR LATA TO NIPPLES 08/04/17 02:30 08/04/17 13:27 Diphtheria/ Tetanus/Acell Pertussis 0.5 ml 0.5 ml ONCE ONCE IM* 08/07/17 09:00 08/07/17 09:01 Oxytocin/Lactated Ringer's 500 ml @ 0 mls/hr ONCE PRN IV For Hemorrhage Management 08/04/17 02:30 Methylergonovine Maleate (Methergine) 0.2 mg ONCE PRN [place] VAGINAL BLEEDING 08/04/17 02:30 Carboprost Tromethamine (Hemabate) 250 mcg ONCE PRN [place] VAGINAL BLEEDING 08/04/17 02:30 Misoprostol (Cytotec) 1,000 mcg ONCE PRN [place] VAGINAL BLEEDING 08/04/17 02:30 Ibuprofen (Motrin) 800 mg Q8 PO 08/04/17 23:00 No ankle edema New born is doing well, Breast feeding JAN PEREIRA MD Aug 04, 2017 15:03
[2017-08-04] MEDS: IBUPROFEN 800 MG TAB PO SCH (23:00)
[2017-08-05] MEDS: OXYCODONE/ACETAMINOPHEN (5/325) TAB PO PRN ×2 (03:53→10:15)
[2017-08-05 04:00] VITALS: BP 103/65; PULSE 85; RESP 18
[2017-08-05 04:10] VITALS: BP 105/57; PULSE 75; RESP 18
[2017-08-05] MEDS: LACTATED RINGER'S 1,000 ML IV SCH ×2 (05:30→10:04)
[2017-08-05] MEDS: IBUPROFEN 800 MG TAB PO SCH ×3 (06:16→21:43)
[2017-08-05 08:20] VITALS: BP 92/58; PULSE 67; RESP 17
[2017-08-05] MEDS: SENNA/DOCUSATE NA (8.6MG/50MG) TAB PO SCH (09:10)
--- NOTE | 2017-08-05 19:19 | DS ---
Date/Time of Note Date/Time of Note DATE: 08/05/17 TIME: 19:22 Obstetrical Discharge Record Final Diagnosis Final Diagnosis: Term delivered Vaginal Delivery Obstetrical Delivery: Bilateral Tubal Ligation Section Section: Repeat Condition on Discharge Physical Assessment Voiding: Yes Bowel Movement: Yes Breast: Soft, non-tender, Filling Fundus: Firm Abdomen and Incision: Incision intact Calf Tenderness: No Patient Condition: Stable ALLAN THORNE MD Aug 05, 2017 19:19
[2017-08-05 19:40] VITALS: BP 92/51; PULSE 77; RESP 18
[2017-08-06] MEDS: IBUPROFEN 800 MG TAB PO SCH ×2 (05:30→13:29)
[2017-08-06 08:20] VITALS: BP 96/53; PULSE 72; RESP 17
[2017-08-06] MEDS: OXYCODONE/ACETAMINOPHEN (5/325) TAB PO PRN (10:25)
[2017-08-07] MEDS ORDERED: DIPHTH/TET/ACEL PERTUSS (ADULT) 0.5 ML VIAL IM* ONE (09:00)
== END 2017-08-06 17:52 | disposition home or self-care (01) | DRG 766 ==
LOC: OBT 19:20 → L-D 19:21 → OBT 19:48 → L-D 19:48 → PP1 08-04 02:10
PROVIDERS: ADMIT Obstetrics & Gynecology; ATTEND Obstetrics & Gynecology
PROC: 0UB70ZZ Excision of Bilateral Fallopian Tubes, Open Approach (ICD-10-PCS; 2017-08-03)
PROC: 10D00Z1 Extraction of Products of Conception, Low, Open Approach (ICD-10-PCS; principal; 2017-08-03 23:00)
DX: O34.211 Maternal care for low transverse scar from previous cesarean delivery (principal); Z30.2 Encounter for sterilization; Z37.0 Single live birth; Z3A.38 38 weeks gestation of pregnancy
CPT/HCPCS: 85025; 85610; 85730; 86592; 86850; 86900; 86901; 88302; 94760; 99464; G0463; J0290; J0690; J1100; J1885; J2274; J2370; J2405; J2590; J3010; J7120